=== PATIENT | female | born 1940 | race Caucasian/White ===

== ENCOUNTER 2024-09-28 10:11 | Emergency (ER) | payer OTHER ==
[~2024-09-28] VITALS: Ht 175.3 cm; Wt 62.9 kg
[2024-09-28 11:08] LABS: BASOPHILS % (AUTO) 0.4 % (0-1); EOSINOPHILS # (AUTO) 0.1 X10'3 (0-0.9); HEMOGLOBIN 13.5 g/dl (12.0-16.0); LYMPHOCYTES # (AUTO) 1.5 X10'3 (1.1-4.8); LYMPHOCYTES % (AUTO) 17.4 % (21-51); MEAN CORPUSCULAR HEMOGLOBIN 30.6 PG (27.0-31.0); MEAN CORPUSCULAR HGB CONC 32.8 g/dL (33.0-36.5); MEAN CORPUSCULAR VOLUME 93.2 FL (78-98); MEAN PLATELET VOLUME 7.9 FL (7.4-10.4); MONOCYTES # (AUTO) 0.7 X10'3 (0-0.9); MONOCYTES % (AUTO) 7.8 % (2-12); NEUTROPHILS # (AUTO) 6.2 X10'3 (1.8-7.7); NEUTROPHILS % (AUTO) 73.4 % (42-75); PLATELET COUNT 315 X10'3 (140-440); RED CELL DISTRIBUTION WIDTH 13.9 % (11.5-14.5); WHITE BLOOD COUNT 8.4 X10'3 (4.5-11.0)
[2024-09-28 11:41] LABS: ALANINE AMINOTRANSFERASE 26 U/L (12-78); ALBUMIN 3.4 G/DL (3.4-5.0); ALBUMIN/GLOBULIN RATIO 0.8 (1.1-1.5); ALKALINE PHOSPHATASE 90 IU/L (46-116); ANION GAP 7 (8-16); ASPARTATE AMINO TRANSFERASE 15 U/L (10-37); BILIRUBIN,TOTAL 0.5 MG/DL (0.1-1.0); BLOOD UREA NITROGEN 12 MG/DL (7-18); BUN/CREATININE RATIO 16.9 (10.0-20.0); CALCIUM 9.1 MG/DL (8.5-10.1); CHLORIDE 104 MMOL/L (99-107); CREATININE 0.71 MG/DL (0.40-0.90); GLUCOSE 108 MG/DL (70-104); PRO BRAIN NATRIURETIC PEPTIDE 284 PG/ML (0-450); SODIUM 141 MMOL/L (135-145); TOTAL CARBON DIOXIDE 30.1 MMOL/L (24-32); TOTAL PROTEIN 7.6 G/DL (6.4-8.2); eCRCL 57 ML/MIN; eGFR 78 ML/MIN
[2024-09-28 12:20] VITALS: BP 134/77; PULSE 72; RESP 14; TEMP 97.1; O2SAT 95
[2024-09-28] MEDS ORDERED: INDO-12 PO (12:25)
== END 2024-09-28 12:25 | disposition home or self-care (01) ==
LOC: ER 10:11
DX: R07.89 Other chest pain (principal); R09.1 Pleurisy; Z60.2 Problems related to living alone; Z79.899 Other long term (current) drug therapy; Z20.822 Contact with and (suspected) exposure to COVID-19
CPT/HCPCS: 36415; 71045; 80053; 83880; 84484; 85025; 87502; 87503; 87811; 93005; 99285

== ENCOUNTER 2025-05-11 15:12 | Outpatient (CLI) | payer OTHER ==
[~2025-05-11 15:12] MED LIST: ACET-1008 PO; GABA-530 PO; LOSA25TA41 PO; MECO10005 PO; PANT40TA54 PO; ROSU10TA72 PO; VIT1CAPS46 PO
--- NOTE | 2025-05-11 16:22 | RADIOLOGY REPORT ---
EXAM: MR MRI C SPINE INDICATION: RIGHT CERVICAL RADICULOPATHY TECHNIQUE: Multiplanar, multisequence imaging of the cervical spine without contrast. COMPARISON: None FINDINGS: [ANATOMY]: Exaggerated cervical lordosis with mild thoracic kyphosis [BONES]: The vertebral bodies are normal in height, alignment, and marrow signal. [CERVICAL CORD]: The cervical cord is normal in signal and morphology. [DISCS]: Diffuse disc desiccation. broad-based disc herniations measuring up to 2 mm C5-6 and C6-7. [FACETS]: Multilevel mild facet arthropathy of the cervical spine [OTHER]: There is no prevertebral soft tissue swelling. The visualized paraspinal soft tissues are normal. [C2-C3]: Trace ligamentum flavum buckling. Mild right foraminal narrowing. [C3-C4]: Ligamentum flavum buckling. Mild bilateral facet arthropathy [C4-C5]: Ligamentum flavum buckling. 2 mm broad-based posterior disc protrusion with effacement of the ventral thecal sac [C5-C6]: Ligamentum flavum buckling. Inconspicuous bilateral uncovertebral spurring. Trace 2 mm posterior disc osteophyte complex effacement of the ventral thecal sac and contact with the cervical cord. Suspected mild right foraminal narrowing [C6-C7]: 2 mm posterior disc osteophyte complex centrally. Ligamentum flavum buckling. [C7-T1]: Unremarkable. IMPRESSION: 1. Multilevel degenerative change of the cervical spine. 2. Mild right C5-6 foraminal narrowing.
== END 2025-05-11 23:59 | disposition home or self-care (01) ==
LOC: MRI02 15:12
PROVIDERS: ATTEND Hospitalist
DX: M47.22 Other spondylosis with radiculopathy, cervical region (principal); M25.78 Osteophyte, vertebrae; M48.02 Spinal stenosis, cervical region
CPT/HCPCS: 72141